=== PATIENT | male | born 1960 | race Caucasian/White ===

== ENCOUNTER 2019-12-29 16:06 | Inpatient (IN) | payer OTHER ==
[~2019-12-29] VITALS: Ht 188 cm; Wt 107.5 kg
[2019-12-29] MEDS ORDERED: MORPHINE SULFATE 4 MG/1ML SYG ONE (16:15)
[2019-12-29] MEDS ORDERED: TETANUS/DIPHTHERIA TOXOID [ADULT] 0.5 ML VIAL IM ONE (16:16)
[2019-12-29 18:03] LABS: EOSINOPHILS % (AUTO) 1.5 % (0.0-8.0); HEMATOCRIT 43.4 % (42-54); LYMPHOCYTES % (AUTO) 17.4 % (21.0-51.0); MEAN CORPUSCULAR HEMOGLOBIN 29.8 pg (27.0-33.0); MEAN CORPUSCULAR HGB CONC 33.4 g/dL (32.0-36.0); MEAN CORPUSCULAR VOLUME 89.1 fL (79-99); MONOCYTES % (AUTO) 10.3 % (3.0-13.0); NEUTROPHILS % (AUTO) 69.7 % (40.0-77.0); PLATELET COUNT (AUTO) 243 K/uL (130-400); RED BLOOD CELL COUNT(AUTO) 4.87 MIL/uL (4.50-6.20); RED CELL DISTRIBUTION WIDTH 12.4 % (11.0-15.5); WHITE BLOOD COUNT (AUTO) 7.2 K/uL (4.8-10.8)
[2019-12-29 18:14] LABS: CREATININE 1.2 mg/dL (0.5-1.5); POTASSIUM 3.8 mmol/L (3.5-5.1)
[2019-12-29 18:19] LABS: ALBUMIN 4.5 g/dL (3.5-5.0); BILIRUBIN,TOTAL 0.5 mg/dL (0.2-1.0)
[2019-12-29 18:27] LABS: INR 0.95 (0.85-1.15); PROTHROMBIN TIME 10.3 SEC (9.6-11.6)
[2019-12-29] MEDS ORDERED: CEFAZOLIN SODIUM 1 GM VIAL ONE (18:28)
[2019-12-29 18:34] LABS: PARTIAL THROMBOPLASTIN TIME 27.1 SEC (26.3-35.5)
[2019-12-29] MEDS ORDERED: MORPHINE SULFATE 2 MG/ML 1ML SYG IV PRN (19:15)
[2019-12-29] MEDS ORDERED: ONDANSETRON HCL 4 MG/2 ML VIAL IV PRN (19:15)
[2019-12-29] MEDS ORDERED: LORAZEPAM 2 MG/ML 1 ML VIAL ONE (19:17)
[2019-12-29] MEDS ORDERED: LORAZEPAM 2 MG/ML 1 ML VIAL IVP PRN (19:30)
[2019-12-29] MEDS ORDERED: HYDRALAZINE HCL 20 MG/ML VIAL ONE (20:02)
[2019-12-29 21:35] VITALS: BP 190/93
[2019-12-29 22:35] VITALS: BP 207/107
[2019-12-29] MEDS ORDERED: HYDRALAZINE HCL 20 MG/ML VIAL IV STA (22:44)
--- NOTE | 2019-12-29 22:44 | NUR ---
NOTE 2151 PAGED HOSPITALIST VIA ANSWERING SERVICE TO NOTIFY OF BP 209/110 P88, RECHECK 190/93 P 95. 2230 NO RETURN CALL YET. CONTACTED ANSWERING SERVICE AGAIN. BP 207/107 P94. 2240 CONTACTED INSULATION BLOWER GARRETT BA RN NO CALLBACK YET FROM EXCEPTIONAL CHILDREN TEACHER ASSISTANT. SHE CONTACTED ED TO SEE IS EXCEPTIONAL CHILDREN TEACHER ASSISTANT IS THERE AND SHE IS. SHE LEFT A MESSAGE TO NOTIFY HER TO CALL FLOOR. RECEIVED CALL BACK FROM Jenelle STUBBS EXCEPTIONAL CHILDREN TEACHER ASSISTANT NOTIFIED OF PATIENT'S LAST BP AND LAST MEDICATED WITH HYDRALAZINE IN ED. ORDERS RECEIVED FOR A ONE TIME 10MG IV DOSE NOW. ALSO PATIENT CAN HAVE CLONIDINE IF HYDRALAZINE IS NOT EFFECTIVE. INFORMED PATIENT OF NEW ORDERS AND CARRIED OUT.
[2019-12-29] MEDS ORDERED: CLONIDINE HCL 0.1 MG TABLET PO PRN (22:45)
[2019-12-29] MEDS: FAMOTIDINE/PF 20 MG/2 ML VIAL IV SCH (22:54)
[2019-12-29] MEDS: HYDRALAZINE HCL 20 MG/ML VIAL IV PRN (22:54)
[2019-12-29] MEDS: LACTATED RINGERS 1000ML 1,000 ML IV SCH (22:54)
[2019-12-29 23:12] VITALS: BP 178/111
[2019-12-29 23:51] VITALS: BP 168/92
[2019-12-30] VITALS (36 sets, daily range): BP systolic 131–200; BP diastolic 63–101
--- NOTE | 2019-12-30 01:38 | NUR ---
NOTE 0110 BP CHECKED 164/88 P 96. PAGED HOSPITALIST VIA ANSWERING SERVICE. 0138 SPOKE WITH LATANYA STUBBS PAPER GRADER NOTIFIED OF BP 2 HRS AFTER LAST HYDRALAZINE DOSE. INQUIRED TO WHETHER SHOULD MEDICATE WITH CLONIDINE. SHE SAID NOT AT THIS TIME. CONTINUE WITH THE HYDRALAZINE WHEN ITS DUE NEXT IF NEEDED.
[2019-12-30 05:42] LABS: EOSINOPHILS % (AUTO) 2.3 % (0.0-8.0); MEAN CORPUSCULAR HEMOGLOBIN 30.8 pg (27.0-33.0); MEAN CORPUSCULAR HGB CONC 34.2 g/dL (32.0-36.0); MONOCYTES % (AUTO) 12.4 % (3.0-13.0); NEUTROPHILS % (AUTO) 65.1 % (40.0-77.0); PLATELET COUNT (AUTO) 228 K/uL (130-400); RED BLOOD CELL COUNT(AUTO) 4.78 MIL/uL (4.50-6.20); RED CELL DISTRIBUTION WIDTH 12.4 % (11.0-15.5); WHITE BLOOD COUNT (AUTO) 5.7 K/uL (4.8-10.8)
[2019-12-30 05:51] LABS: HEMOGLOBIN A1C 5.8 % (4.0-6.0)
[2019-12-30 06:00] LABS: ALBUMIN 4.1 g/dL (3.5-5.0); BILIRUBIN,TOTAL 0.7 mg/dL (0.2-1.0); CREATININE 0.9 mg/dL (0.5-1.5); POTASSIUM 3.2 mmol/L (3.5-5.1); TOTAL PROTEIN, SERUM 7.4 g/dL (6.0-8.3)
[2019-12-30] MEDS: HYDRALAZINE HCL 20 MG/ML VIAL IV PRN ×2 (06:45→16:38)
--- NOTE | 2019-12-30 06:45 | NUR ---
NOTE 0638 CHECKED BP 183/101 P 88. MEDICATED WITH HYDRALAZINE.
--- NOTE | 2019-12-30 07:15 | NUR ---
TO OR NOW.
[2019-12-30] MEDS ORDERED: SUCCINYLCHOLINE 200MG/10ML SYR ONE (07:45)
[2019-12-30] MEDS ORDERED: DEXAMETHASONE SOD PHOSPHATE 10MG/ML 1ML VIAL ONE (07:45)
[2019-12-30] MEDS ORDERED: GLYCOPYRROLATE 1 MG/5 ML SYRINGE ONE (07:45)
[2019-12-30] MEDS ORDERED: MIDAZOLAM HCL 1 MG/ML 2ML VIAL ONE (07:45)
[2019-12-30] MEDS ORDERED: LIDOCAINE PF 2% 5ML ABBOJECT ONE (07:45)
[2019-12-30] MEDS ORDERED: PROPOFOL 10 MG/ML 20ML VIAL IV ONE (07:45)
[2019-12-30] MEDS ORDERED: NEOSTIGMINE 5MG/5ML SYR IV ONE (07:45)
[2019-12-30] MEDS ORDERED: ONDANSETRON HCL 4 MG/2 ML VIAL ONE (07:46)
[2019-12-30] MEDS ORDERED: FENTANYL CITRATE PF 50 MCG/1 ML 2ML VIAL ONE (07:46)
[2019-12-30] MEDS ORDERED: ROCURONIUM 10MG/1ML SYR 10 MG/ML ML ONE (07:46)
[2019-12-30] MEDS ORDERED: ESMOLOL HCL 10 MG/ML 10 ML VIAL ONE (07:48)
[2019-12-30] MEDS ORDERED: CEFAZOLIN SODIUM 1 GM VIAL ONE (09:02)
[2019-12-30] MEDS: LACTATED RINGERS 1000ML 1,000 ML IV SCH ×2 (10:08→16:59)
[2019-12-30] MEDS ORDERED: HYDRALAZINE HCL 20 MG/ML VIAL ONE ×2 (10:11→10:23)
--- NOTE | 2019-12-30 11:00 | NUR ---
POST OP NOTE: BACK FROM OR, RR NURSE STATES WAS RUNNING HIGH BP I RECOVERY ROOM. BP 161/78, HR 85 RR 16, 02 SATS 96% ON ROOM AIR. INDEX FINGERS WITH DRESSINGS WHICH ARE CLEAN, DRY WELL SECURED. ORDER IN CHART NOT TO CHANGE DRESSING
[2019-12-30] MEDS: FAMOTIDINE/PF 20 MG/2 ML VIAL IV SCH ×2 (11:10→20:11)
[2019-12-30] MEDS ORDERED: AMLODIPINE BESYLATE 5 MG TAB PO SCH ×2 (11:15→18:20)
[2019-12-30] MEDS ORDERED: POTASSIUM CHLORIDE 20 MEQ ERTAB PO PRN (11:30)
[2019-12-30] MEDS: POTASSIUM CHLORIDE 10% ELIXIR 20 MEQ/15 ML UDCUP PO PRN ×2 (11:50→14:05)
--- NOTE | 2019-12-30 12:00 | NUR ---
MET W PATIENT AT BEDSIDE- S/P SURGERY TO BILATERAL INDEX FINGERS. PT STATES MOVED HERE RECENTLY, LIVES AT [facility] AT THIS TIME; NO FAMILY OR FRIENDS IN THE [place], STATES DOES NOT KNOW WHO WILL DRIVE HIM HOME, WILL TAKE A LYFT OR AN UBER- STATES HIS KEYS AND HIS [place] CARD FOR HIS ROOM AREIN HIS CAR AT THE [employer] [address]. STATES THE COMPANY P[employer] IS CLOSED ON WEDNESDAY- ASSISTED PT TO CALL HIS BOSS [employer] TO GET THE KEYS FROM CARE AND DELIVER TO HOSPITAL. ADVISED PATIENT THAT WITH WORKMAN'S COMP, AND WEEKEND, WILL BE DIFFICULT TO KNOW HOW HIS BENEFITS WILL WORK UNTIL WEDNESDAY.. PATIENTS PRESSURE HIGH 180S AT THI TIME- DENYING PAIN BUT STATES WOULD BE NICE TO GET HOME AND RELAX. CM TO FOLLOW FOR DC NEEDS. Addendum: 12/30/19 at 1439 by TABITHA ALBARRAN RN CM Amended: Links added.
--- NOTE | 2019-12-30 14:39 | NUR ---
NO ORDERS FOR HOME HEALTH FOR DRESSING CHANGES AT THIS TIME. DR. RICKS, SURGEON, SOMETIMES USES [facility]ED [facility], PER OFFICE. NO ORDERS TO DO DRESSING CHANGES YET PATIENT HAS NO OTHER INSURANCE BESIDE WORKMAN[employer] COMP YET- HAS NOT BEEN AT JOB LONG ENOUGH. WAS ADVISED TO TRY [facility] [place], THAT IS HIS PLAN ON [place] Addendum: 12/30/19 at 1442 by TABITHA ALBARRAN RN CM Amended: Links added.
[2019-12-30] MEDS: CEFAZOLIN SODIUM 1 GM VIAL IVP SCH (15:19)
--- NOTE | 2019-12-30 16:00 | NUR ---
STARTING TO GET ANXIETY, STATES NEEDS TO GET OUT OF HOSP. HAS AN OUT OF STATE INTERVIEW AND DOES NOT WANT TO MISS IT
[2019-12-30] MEDS ORDERED: ACETAMINOPHEN-CODEINE 300/30MG TAB PO PRN (17:15)
--- NOTE | 2019-12-30 18:00 | NUR ---
DENIES PAIN AT THIS TIME, HAS BEEN OUT OF BED AND TO BR, VOIDED LG. AMT.
[2019-12-30] MEDS ORDERED: HYDROCHLOROTHIAZIDE 25 MG TABLET PO SCH (18:20)
[2019-12-30] MEDS ORDERED: HYDROCHLOROTHIAZIDE 25 MG TABLET ONE (20:03)
[2019-12-31 04:47] VITALS: BP 146/88
[2019-12-31] MEDS: CEFAZOLIN SODIUM 1 GM VIAL IVP SCH ×4 (06:37→19:47)
[2019-12-31 08:00] VITALS: BP 173/87
[2019-12-31] MEDS: FAMOTIDINE/PF 20 MG/2 ML VIAL IV SCH ×2 (09:03→19:47)
[2019-12-31] MEDS: AMLODIPINE BESYLATE 5 MG TAB PO SCH (09:04)
[2019-12-31] MEDS: HYDROCHLOROTHIAZIDE 25 MG TABLET PO SCH (09:04)
[2019-12-31 10:27] LABS: CREATININE 1.1 mg/dL (0.5-1.5); MAGNESIUM 2.2 mg/dL (1.80-2.40); POTASSIUM 3.7 mmol/L (3.5-5.1)
[2019-12-31 12:00] VITALS: BP 167/96
[2019-12-31 16:00] VITALS: BP 181/108
[2019-12-31] MEDS: HYDRALAZINE HCL 20 MG/ML VIAL IV PRN ×3 (17:10→21:21)
--- NOTE | 2019-12-31 18:00 | NUR ---
PT. WILL WAIT UNTIL AM FOR DISCHARGE, BP STILL HIGH AND WAS GIVEN OPTION .
[2019-12-31 20:20] VITALS: BP 175/91
[2019-12-31] MEDS: HYDRALAZINE HCL 25 MG TABLET PO SCH (21:00)
--- NOTE | 2019-12-31 21:10 | NUR ---
pagedasha mazariegos for patient's continued high blood pressure of 175/100.
--- NOTE | 2019-12-31 21:25 | NUR ---
spoke with pat mazariegos, she ordered 10 mg hydralazine and recheck blood pressure in an hour and 0.1 clonidine once if it is still high. patient refused hydralazine 10 mg. will call the doctor on that
[2019-12-31 22:08] VITALS: BP 154/89
[2020-01-01 00:20] VITALS: BP 151/91
[2020-01-01] MEDS: CEFAZOLIN SODIUM 1 GM VIAL IVP SCH ×2 (04:49→14:54)
[2020-01-01 05:03] VITALS: BP 157/96
--- NOTE | 2020-01-01 05:12 | NUR ---
WOUND CARE CONDUCTED ON BILATERAL INDEX FINGERS WITH XEROFORM DRESSING, KERLEX, AND TAPE.
[2020-01-01 07:30] VITALS: BP 163/94
[2020-01-01 08:01] LABS: ALBUMIN 4.2 g/dL (3.5-5.0); BILIRUBIN,TOTAL 0.7 mg/dL (0.2-1.0); POTASSIUM 3.3 mmol/L (3.5-5.1); TOTAL PROTEIN, SERUM 7.6 g/dL (6.0-8.3)
[2020-01-01] MEDS: HYDROCHLOROTHIAZIDE 25 MG TABLET PO SCH (08:51)
[2020-01-01] MEDS: HYDRALAZINE HCL 25 MG TABLET PO SCH (08:51)
[2020-01-01] MEDS: AMLODIPINE BESYLATE 5 MG TAB PO SCH (08:52)
[2020-01-01] MEDS: FAMOTIDINE/PF 20 MG/2 ML VIAL IV SCH (08:52)
[2020-01-01 11:00] VITALS: BP 164/96
[2020-01-01] MEDS ORDERED: HYDR25 PO (12:40)
[2020-01-01] MEDS ORDERED: HYDR25TA PO (12:40)
[2020-01-01] MEDS ORDERED: CEPH-578 PO (12:40)
[2020-01-01] MEDS ORDERED: AMLO5TAB4 PO (12:40)
--- NOTE | 2020-01-01 15:00 | NUR ---
discharge home- ASSISTANCE info sent to Dr. Urban's office and to [facility] Patient will have to go to dr. polk office first to get orders for hh gave patient info on [facility] 4 dollar meds- all discharge prescriptions are from the discount med list offered to call meds in to [facility] so patient could pick them up onthe way home, but patient declined
--- NOTE | 2020-01-01 15:55 | NUR ---
DC PT LEFT VIA WHEEL CHAIR IN PVT CAR WITH . PT A/A X3 RADIAL AND ULNAR PULSES PRESENT, DRESSING DRY AND INTACT BILATERALLY. D/C INSTRUCTIONS GIVEN TO PT, RX WAS CALLED TO RX. V/S STABLE NO COMPLICATIONS UPON D/C. [place] F/U [place] [facility]GE[facility] JANUARY 03
[2020-01-01] MEDS ORDERED: THIAMINE HCL 100 MG TABLET PO SCH (20:00)
[2020-01-01] MEDS ORDERED: FOLIC ACID 1 MG TABLET PO SCH (20:00)
--- NOTE | 2020-01-02 15:00 | NUR ---
discharge home- ASSISTANCE info sent to Dr. Urban's office and to [facility] Patient will have to go to dr. polk office first to get orders for hh gave patient info on [facility] 4 dollar meds- all discharge prescriptions are from the discount med list offered to call meds in to [facility] so patient could pick them up onthe way home, but patient declined
--- NOTE | 2020-01-02 15:00 | NUR ---
discharge home- info sent to Dr. Urban's office and to [facility] Patient will have to go to dr. polk office first to get orders for hh gave patient info on [facility] 4 dollar meds- all discharge prescriptions are from the discount med list offered to call meds in to [facility] so patient could pick them up onthe way home, but patient declined
--- NOTE | 2020-01-03 14:35 | NUR ---
discharge home- info sent to Dr. Urban's office and to [facility] Patient will have to go to dr. polk office first to get orders for gave patient info on [facility] 4 dollar meds- all discharge prescriptions are from the discount med list offered to call meds in to [facility] so patient could pick them up onthe way home, but patient declined Addendum: 01/03/20 at 1438 by TABITHA ALBARRAN RN CM Amended: Links added.
== END 2020-01-01 16:12 | disposition home or self-care (01) | DRG 906 ==
LOC: EDH 16:06 → EDHIP 19:05 → 3CH 21:06
PROVIDERS: ADMIT Internal Medicine; ATTEND Internal Medicine
PROC: 0JBJ0ZZ Excision of Right Hand Subcutaneous Tissue and Fascia, Open Approach (ICD-10-PCS; principal; 2019-12-30 08:00)
DX: S68.120A Partial traumatic metacarpophalangeal amputation of right index finger, initial encounter (principal); I16.0 Hypertensive urgency; I10 Essential (primary) hypertension; W31.9XXA Contact with unspecified machinery, initial encounter; Y93.89 Activity, other specified; Y92.89 Other specified places as the place of occurrence of the external cause; Y99.8 Other external cause status; Z87.891 Personal history of nicotine dependence
CPT/HCPCS: 36415; 73140; 80048; 80053; 80061; 83036; 83735; 85025; 85610; 85730; 90714; 93005; A4606; G0378; G0480; J0330; J0360; J0690; J1100; J2001; J2060; J2250; J2270; J2405; J2704; J2710; J3010; J3490; J7120